=== PATIENT | female | born 1995 | race Two or more races ===

== ENCOUNTER 2018-07-04 16:41 | Emergency (ER) | payer OTHER ==
[~2018-07-04] VITALS: Ht 182.9 cm; Wt 72.6 kg
[~2018-07-04 16:41] MED LIST: BENADRYL50 MG PO; CEFUROXIME500 MG PO; FOLIC ACID1 MG; IRON18 MG; MUPIROCIN22 GM TOP; VITAL-D RX TAB1 EACH
== END 2018-07-04 19:47 | disposition home or self-care (01) ==
LOC: ER 16:41
DX: J02.8 Acute pharyngitis due to other specified organisms (principal)

== ENCOUNTER 2018-08-29 21:10 | Emergency (ER) | payer OTHER ==
[~2018-08-29] VITALS: Ht 182.9 cm; Wt 72.6 kg
== END 2018-08-29 22:16 | disposition home or self-care (01) ==
LOC: ER 21:10
DX: T78.1XXA Other adverse food reactions, not elsewhere classified, initial encounter (principal); R21 Rash and other nonspecific skin eruption

== ENCOUNTER 2018-09-20 03:08 | Emergency (ER) | payer OTHER ==
[~2018-09-20] VITALS: Ht 182.9 cm; Wt 72.6 kg
[2018-09-20] MEDS ORDERED: URIN D.S. TABL1 EACH PO (06:58)
== END 2018-09-20 10:16 | disposition home or self-care (01) ==
LOC: ER 03:08
DX: N39.0 Urinary tract infection, site not specified (principal); J98.01 Acute bronchospasm

== ENCOUNTER 2020-05-06 14:42 | Emergency (ER) | payer OTHER ==
[~2020-05-06] VITALS: Ht 185.4 cm; Wt 72.6 kg
[~2020-05-06 14:42] MED LIST changes: +URIN D.S. TABL1 EACH PO
== END 2020-05-06 19:45 | disposition home or self-care (01) ==
LOC: ER 14:42
DX: S00.03XA Contusion of scalp, initial encounter (principal); M54.2 Cervicalgia; R42 Dizziness and giddiness; W18.09XA Striking against other object with subsequent fall, initial encounter; Y93.89 Activity, other specified; Y92.018 Other place in single-family (private) house as the place of occurrence of the external cause; Y99.8 Other external cause status

== ENCOUNTER 2020-11-16 21:01 | Emergency (ER) | payer OTHER ==
[~2020-11-16] VITALS: Ht 185.4 cm; Wt 81.6 kg
[2020-11-17] MEDS ORDERED: MOXIFLOXACIN H400 MG PO (00:25)
[2020-11-17] MEDS ORDERED: PROAIR RESPICL90 MCG IH (00:33)
== END 2020-11-17 01:59 | disposition home or self-care (01) ==
LOC: ER 21:01
DX: J45.998 Other asthma (principal); J40 Bronchitis, not specified as acute or chronic; Z11.52 Encounter for screening for COVID-19

== ENCOUNTER 2021-01-11 18:37 | Emergency (ER) | payer OTHER ==
[~2021-01-11] VITALS: Ht 185.4 cm; Wt 81.6 kg
[~2021-01-11 18:37] MED LIST changes: +MOXIFLOXACIN H400 MG PO; +PROAIR RESPICL90 MCG IH
[2021-01-11] MEDS ORDERED: TUSNEL LIQUID178 ML PO (21:11)
[2021-01-11] MEDS ORDERED: DUI500 PO (21:11)
[2021-01-11] MEDS ORDERED: ALBUTEROL2.5 MG/3 M IH (21:11)
== END 2021-01-11 22:54 | disposition home or self-care (01) ==
LOC: ER 18:37
DX: J03.90 Acute tonsillitis, unspecified (principal); Z03.818 Encounter for observation for suspected exposure to other biological agents ruled out; R07.0 Pain in throat; R05 Cough; R50.9 Fever, unspecified; R09.81 Nasal congestion

== ENCOUNTER 2021-02-16 23:52 | Emergency (ER) | payer OTHER ==
[~2021-02-16] VITALS: Ht 185.4 cm; Wt 81.6 kg
[~2021-02-16 23:52] MED LIST changes: +ALBUTEROL2.5 MG/3 M IH; +DUI500 PO; +TUSNEL LIQUID178 ML PO
== END 2021-02-17 06:42 | disposition home or self-care (01) ==
LOC: ER 23:52
DX: G40.89 Other seizures (principal); R55 Syncope and collapse

== ENCOUNTER 2022-01-28 17:13 | Emergency (ER) | payer OTHER ==
[~2022-01-28] VITALS: Ht 182.9 cm; Wt 92.1 kg
[2022-01-28] MEDS ORDERED: CLONAZEPAM0.5 MG (17:38)
[2022-01-28] MEDS ORDERED: DEPAKOTE ER500 MG (17:38)
[2022-01-28] MEDS ORDERED: DIVALPROEX SOD250 MG (17:38)
== END 2022-01-28 20:05 | disposition home or self-care (01) ==
LOC: ER 17:13
DX: R10.13 Epigastric pain (principal); Z88.6 Allergy status to analgesic agent; Z91.013 Allergy to seafood

== ENCOUNTER 2022-05-20 01:24 | Emergency (ER) | payer OTHER ==
[~2022-05-20] VITALS: Ht 185.4 cm; Wt 95.3 kg
[~2022-05-20 01:24] MED LIST changes: +CLONAZEPAM0.5 MG; +DEPAKOTE ER500 MG; +DIVALPROEX SOD250 MG
[2022-05-20] MEDS ORDERED: BUDESONIDE0.5 MG/2 M IH (04:35)
[2022-05-20] MEDS ORDERED: ALBUTEROL2.5 MG/3 M IH (04:35)
[2022-05-20] MEDS ORDERED: SINGULAIR 10MG10 MG PO ×2 (04:35→04:36)
[2022-05-20] MEDS ORDERED: ZYNCOF 20-400120 ML PO ×2 (04:36)
== END 2022-05-20 04:41 ==
LOC: ER 01:24
DX: J45.901 Unspecified asthma with (acute) exacerbation (principal); Z88.6 Allergy status to analgesic agent; Z91.013 Allergy to seafood

== ENCOUNTER 2022-06-21 21:35 | Emergency (ER) | payer OTHER ==
[~2022-06-21] VITALS: Ht 185.4 cm; Wt 90.7 kg
[~2022-06-21 21:35] MED LIST changes: +BUDESONIDE0.5 MG/2 M IH; +SINGULAIR 10MG10 MG PO; +ZYNCOF 20-400120 ML PO
[2022-06-22] MEDS ORDERED: CEFDINIR300 MG PO (02:24)
[2022-06-22] MEDS ORDERED: ACETAMINOPHEN500 M2 PO (02:24)
== END 2022-06-22 02:36 | disposition home or self-care (01) ==
LOC: ER 21:35
DX: R10.2 Pelvic and perineal pain (principal); N92.1 Excessive and frequent menstruation with irregular cycle; N39.0 Urinary tract infection, site not specified; Z20.822 Contact with and (suspected) exposure to COVID-19; Z88.6 Allergy status to analgesic agent; Z91.013 Allergy to seafood